=== PATIENT | male | born 1935 | race African-American/Black ===

== ENCOUNTER 2017-06-08 13:47 | Emergency (ER) | payer MEDICARE ==
[~2017-06-08] VITALS: Ht 170.2 cm; Wt 61.2 kg
[~2017-06-08 13:47] MED LIST: BACTRIM DS 8001 TAB PO; DARVOCET-N 1001 EACH PO; FUROSEMIDE 20MG20 MG PO; HYDROCODONE BIT1 T44 PO; LISINOPRIL 5MG T5 MG PO; LOPRESSOR 25MG.25 MG PO; LORTAB 5/500 501 TAB PO; PLAVIX75 MG PO; PRAVASTATIN 40M40 MG PO
[2017-06-08 14:17] LABS: LYMPH # 1.8 K/mm3 (0.7-4.5); LYMPH % 20.2 % (10-50)
[2017-06-08 14:19] LABS: HEMOGLOBIN 10.8 g/dL (14.1-18.0)
[2017-06-08 14:29] LABS: BUN 31 mg/dL (7-18); GFR (ESTIMATED) 49 ML/MIN (>60)
--- NOTE | 2017-06-08 14:37 | RADIOLOGY REPORT PS360 ---
CT CT HEAD W/O CONTRAST HISTORY: WEAKNESS, recent fall ORDERING PHYSICIAN: Constanza Lacey MD PATIENT AGE: 81 years COMPARISON: None. FINDINGS: There is mild prominence of the ventricles and sulci consistent with volume loss. Low density changes are present in the periventricular region consistent with ischemic gliotic change from small vessel disease. There are low density changes present in the left basal ganglia consistent with a lacunar infarction probably old. No acute intracranial hemorrhage. There is mild mucosal thickening of the right maxillary sinus and of the ethmoid sinuses. No mastoid effusion. IMPRESSION: 1. 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 2. No acute finding
--- NOTE | 2017-06-08 14:38 | Emergency Room Report ---
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 PT REPORTS HE HASN'T EATEN IN A COUPLE DAYS. REPORTS HE FELL LAST WEEK AND WASN'T ABLE TO WALK FOR 4 DAYS, PT STATES WAS ON THE FLOOR FOR 4 DAYS AFTER FALLING. PT DENIES ANY PAIN OR COMPLAINTS. PT STATES "IM HUNGRY". 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 N Clinical Suspician of Infection? N Mental Status: 1 - Regular (Normal Baseline) Sepsis Risk:Low Sepsis Risk Have you (or family members/close friends) recently traveled outside the [place]? N If Yes, where/when: Have you had exposure to infectious disease within the past month? N TB? Other? Specify: Patient called his daughter from [place] today to check on him. He was hungry and she bought him food. He lives alone. He states he fell last week and stayed on the floor for several days until a friend came by and sat him up. He is ambulatory with assistance today. He has a walker, but it's in storage. He has generalized weakness, no headache, no leg or back pain s/p fall. ALLERGIES Coded Allergies: No Known Allergies (06/08/17) Home Medications Reported Medications HYDROCODONE/ACETAMINOPHEN (Hydrocodon-Acetaminophen 5-325) 1 TAB PO PRN PRN LEG PAIN #90 Metoprolol Tartrate (Lopressor) 12.5 MG PO BID #30 PRAVASTATIN SODIUM (Pravastatin Sodium) 40 MG PO QHS Clopidogrel Bisulfate (Plavix) 75 MG PO DAILY History Medical History General Angina: No TN: No Hypertension? No Hyperlipidemia? Yes CHF? No COPD? No Asthma? No CVA? Yes Seizures? No Diabetes? No GB Disease: No MRSA? No TB? No Cancer? No Immunization Hx DT/Tetanus > 10 Years Ago Flu Unknown Pneumonia Refuses Surgical Hx Previous Surgery?Y Hernia Repair Social History Smoking Hx Smoker: Never Smoker Tobacco: No Alcohol Alcohol: No Review of Systems All Other Systems Reviewed and Negative Psychiatric/Neurological see HPI Physical Exam Vital Signs Vital Signs Date Time Temp Pulse Resp B/P Pulse O2 O2 Flow FiO2 Ox Delivery Rate 06/08 1455 70 18 135/89 99 06/08 1348 98.2 73 18 139/76 99 General Appearance normal appearance, thin (poorly groomed, quite thin) Eye Exam - bilateral eye normal exam (arcus senilis), bilateral eye PERRL, bilateral eye EOMI (no diplopia) Ear, Nose, Throat hearing grossly normal (atraumatic) Neck normal inspection, non-tender, supple, full range of motion Respiratory Status Yes: trachea midline, chest symmetrical, non tender chest. No: respiratory distress, tender on palpation, use of accessory muscles, pain on inspiration, pain on expiration, productive cough, non productive cough. Lung Sounds bilateral: normal breath sounds, lungs clear. Cardiovascular normal exam, regular rate/rhythm, no peripheral edema, no gallop, no JVD, no murmur, no rub, normal peripheral pulses Gastrointestinal normal bowel sounds, normal exam, non tender, soft, no organomegaly, no guarding, no rebound (scaphoid) Back normal inspection, no CVA tenderness, no vertebral tenderness, bowel/ bladder continent, strt leg raising(L)-NML (atraumatic), strt leg raising(R)-NML Extremities non-tender, normal range of motion, normal capillary refill, no calf tenderness, no pedal edema, pelvis stable, somewhat discolored bilateral lower extremities, c/w mild stasis dermatitis without edema; warm feet but with onychomycosis; toes well perfused with brisk CR Strength 5 Upper Ext (L), 5 Upper Ext (R), 5 Lower Ext (L), 5 Lower Ext (R) Neurologic alert, 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 No Results/Orders Laboratory Tests 06/08/17 1340: Sodium 139, Potassium 3.1 L, Chloride 100, Carbon Dioxide 32, BUN 31 H, Creatinine 1.4 H, Estimated Creat Clear 36 L, Estimated GFR (MDRD) 49, Glucose 140 H, Calcium 8.9, Total Bilirubin 0.3, AST 44 H, ALT 30, Alkaline Phosphatase 74, Creatine Kinase 516 H, CK-MB (CK-2) Rel Index 0.3, CK and CKMB Interp 1.6, Troponin I < 0.02, Total Protein 8.1, Albumin 3.2 L, Globulin 4.9 H, Albumin/Globulin Ratio 0.7 L, WBC 8.8, RBC 3.68 L, Hgb 10.8 L, Hct 34.4 L , MCV 93.5, RDW 15.7, Plt Count 610 H, MPV 7.4, Gran % 70.2, Gran # 6.2, Lymphocytes % 20.2, Monocytes % 6.6, Eosinophils % 2.2, Basophils % 0.8, Lymphocytes # 1.8, Monocytes # 0.6, Eosinophils # 0.2, Basophils # 0.1, PUBS MCHC 31.5 L, MCH 29.4 Current Medication Orders Sig/Jorge Start time Last Medication Dose Route Stop Time Status Admin Sodium Chloride 1,000 ML .STK-MED ONE 06/08 1435 DC IV Sodium Chloride 10 ML PRN PRN 06/08 1400 AC IV 06/09 1353 Sodium Chloride 1,000 ML .Q10H 06/08 1400 AC 06/08 IV 06/09 0153 1436 Sodium Chloride 10 ML PRN PRN 06/08 1400 AC IV 06/09 1353 Orders Procedure Date/time Status DIET-NOTHING BY MOUTH 06/08 D Active ELECTROCARDIOGRAM REQUEST 06/08 1450 Active OP COURTSEY MEAL 06/08 1439 Active CARE MANAGEMENT REQUEST 06/[address] HEAD REQ 06/08 135 Complete IV SALINE LOCK 06/08 1353 Active URINALYSIS/COMPLETE 06/08 135 Active CBC WITH AUTO DIFF 06/08 135 Complete CARDIAC ENZYMES 06/08 135 Complete CHEM 12 PROFILE 06/08 135 Complete 12 LEAD EKG-KASIA (INITIAL) 06/08 UNK Active CM/EKG CM/EKG EKG rate, NSR, rhythm, no evid. of ischemic chgs, no ectopy, normal QRS, normal OR, normal EKG, compared w/(date of old) (no chg 05/12/13) XRAY/CT/US XRAY/CT/US XRAY chest XR interpretation by reviewed by me (report reviewed) Xray Results normal/NAD, normal heart size, no hematoma seen, normal lung inflation lida CT head CT interpretation by reviewed by me (report reviewed) Time results known: 1458 CT Results normal/NAD, neg acute; old lacunar infarcts; atrophy Progress ED Progress Notes Date 06/08/17 Time 1458 Comment Ate lunch. Daughter at bedside speaking with Care Management. Departure Departure Time of Disposition 1525 Disposition DC Home or Self Care(routine) Clinical Impression Primary Impression: Generalized weakness Secondary Impressions: Dehydration Condition STABLE Patient Instructions DI for Dehydration -- Adult Additional Instructions Drink more fluids daily, recommend that a family member call you daily to check on you; care management will contact your MD at to find out about home health nurse options. See your doctor at for recheck next week. Discharge Counseling Counseled pt/family regarding diagnosis, test results, home care, follow up needs ED Critical Care Critical Care No at 1520
--- NOTE | 2017-06-08 14:49 | RADIOLOGY REPORT PS360 ---
CHEST-PORTABLE HISTORY: weakness ORDERING PHYSICIAN: Constanza Lacey MD PATIENT AGE: 81 years COMPARISON: 05/12/2013 FINDINGS: The cardiomediastinal silhouette and pulmonary vascularity are within normal limits. No lobar consolidation or collapse. There is lucency in the right upper lobe probably related to skin fold artifact.. No acute bony abnormalities. IMPRESSION: No acute finding
--- OUTSIDE RECORDS SUMMARY | 2017-06-08 14:55 | External Medical Summary Rpt | CCD ---
Author Author CHANTELL Address Unknown Phone [email or web address] Purpose Continuity of Care Document - 06-08-2017 through 2016
--- OUTSIDE RECORDS SUMMARY | 2017-06-08 14:55 | External Medical Summary Rpt | CCD ---
Author Author [employer] Organization [employer] Address Unknown Phone Unavailable Purpose Continuity of Care Document - through 2016
--- OUTSIDE RECORDS SUMMARY | 2017-06-08 14:55 | External Medical Summary Rpt | CCD ---
Author Author CHANTELL Address Unknown Phone Purpose Continuity of Care Document - 06-08-2017 through 2016
--- OUTSIDE RECORDS SUMMARY | 2017-06-08 14:55 | External Medical Summary Rpt | CCD ---
Demographics Preferred Language Belarusian Marital Status Unknown Yazidism Affiliation Unknown Race Unknown Ethnic Group Unknown Author Author , CHANTELL MILLARD Address Unknown Phone Immunization No patient found.
--- OUTSIDE RECORDS SUMMARY | 2017-06-08 14:55 | External Medical Summary Rpt | CCD ---
Demographics Preferred Language Korean Marital Status Unknown Confucianist Affiliation Unknown Race Unknown Ethnic Group Unknown Author Author , CHANTELL MILLARD Address Unknown Phone Immunization No patient found.
--- OUTSIDE RECORDS SUMMARY | 2017-06-08 14:56 | External Medical Summary Rpt ---
Author Author VENICE Gabby, [employer] Address Unknown Phone Unavailable Results CBC W Auto Differential panel in Blood Observa Value Referen Units Interpr Notes Date tion ce etation Range Basophils 0 - 0.2 K/MM3 Normal No Jun 08 informati 2016 1:40 [#/volume on in PM ] in source Blood by data Automated count Basophils 0.1 - 2.0 % Normal No Jun 08 /100 informati 2016 1:40 leukocyte on in PM s in source Blood by data Automated count Eosinophi 0.0 - 0.4 K/mm3 Normal No Jun 08 ls informati 2016 1:40 [#/volume on in PM ] in source Blood by data Automated count Eosinophi 0.1 - % Normal No Jun 08 ls/100 12.0 informati 2016 1:40 leukocyte on in PM s in source Blood by data Automated count Granulocy 1.3 - 8.0 K/mm3 Normal No Jun 08 cindy informati 2017 1:40 [#/volume on in PM ] in source Blood by data Automated count Granulocy 37.0 - % Normal No Jun 08 cindy/100 80.0 informati 2016 1:40 leukocyte on in PM s in source Blood by data Automated count Hematocri 42.0 - % Low No Jun 08 t [Volume 52.0 informati 2016 1:40 on in PM Fraction] source of Blood data Hemoglobi 14.1 - g/dL Low No Jun 08 n 18.0 informati 2016 1:40 [Mass/vol on in PM ume] in source Blood data Lymphocyt 0.7 - 4.5 K/mm3 Normal No Jun 08 es informati 2016 1:40 [#/volume on in PM ] in source Unspecifi data ed specimen by Automated count Lymphocyt 10 - 50 % Normal No Jun 08 es informati 2016 1:40 [#/volume on in PM ] in source Unspecifi data ed specimen by Automated count Erythrocy 27 - 31.2 pg Normal No Jun 08 te mean informati 2017 1:40 corpuscul on in PM ar source hemoglobi data n [Entitic mass] Erythrocy 31.8 - g/dl Low No Oct 20 te mean 35.4 informati 2017 1:40 corpuscul on in PM ar source hemoglobi data n concentra tion [Mass/vol ume] by Automated count Erythrocy 82.2 - fl Normal No Oct 20 te mean 97.8 informati 2017 1:40 corpuscul on in PM ar volume source [Entitic data volume] by Automated count Monocytes 0.1 - 1.0 K/mm3 Normal No Oct 20 informati 2017 1:40 [#/volume on in PM ] in source Blood by data Automated count Monocytes 1.7 - 9.3 % Normal No Oct 20 /100 informati 2017 1:40 leukocyte on in PM s in source Blood by data Automated count Platelet 7.4 - fl Normal No Oct 20 mean 10.4 informati 2017 1:40 volume on in PM [Entitic source volume] data in Blood by Automated count Platelets 142 - 424 K/mm3 High No Oct 20 informati 2017 1:40 [#/volume on in PM ] in source Blood data Erythrocy 4.6 - 6.2 M/mm3 Low No Oct 20 cindy informati 2017 1:40 [#/volume on in PM ] in source Amniotic data fluid Erythrocy 11.5 - % Normal No Oct 20 te 17.5 informati 2016 1:40 distribut on in PM ion width source [Entitic data volume] by Automated count Leukocyte 4.8 - K/MM3 Normal No Oct 20 s 10.8 informati 2016 1:40 [#/volume on in PM ] in source Blood data
[2017-06-08 15:48] VITALS: BP 141/80
== END 2017-06-08 15:47 | disposition home or self-care (01) ==
LOC: ER 13:47
PROVIDERS: Emergency Medicine
DX: R53.1 Weakness (principal); E86.0 Dehydration; Z86.73 Personal history of transient ischemic attack (TIA), and cerebral infarction without residual deficits; E78.5 Hyperlipidemia, unspecified; Z79.899 Other long term (current) drug therapy; Z79.02 Long term (current) use of antithrombotics/antiplatelets